=== PATIENT | female | born 1965 | race Caucasian/White ===

== ENCOUNTER 2020-03-09 15:39 | Emergency (ER) | payer OTHER ==
[~2020-03-09] VITALS: Ht 154.9 cm; Wt 83.9 kg
[2020-03-09 18:04] LABS: URINE BILIRUBIN NEGATIVE (Negative); URINE BLOOD NEGATIVE (Negative); URINE CLARITY CLEAR; URINE COLOR YELLOW; URINE GLUCOSE-RANDOM* NEGATIVE (Negative); URINE KETONES NEGATIVE (Negative); URINE LEUKOCYTES-REFLEX NEGATIVE (Negative); URINE NITRITE-REFLEX NEGATIVE (Negative); URINE PROTEIN (DIPSTICK) NEGATIVE (Negative); URINE UROBILINOGEN 0.2 E.U./dl (0.2-1.0)
[2020-03-09 18:06] LABS: HEMATOCRIT 44.1 % (37.0-47.0); HEMOGLOBIN 14.2 gm/dL (12.0-15.0); MCH 26.9 pg (26.0-34.0); MCHC 32.1 g/dL (28.0-37.0); MCV 83.6 fL (80.0-100.0); RBC 5.28 mil/uL (4.20-5.00); RDW 16.4 % (10.5-14.5); WBC 11.1 thou/uL (4.0-11.0)
[2020-03-09 18:13] LABS: AMP/METHAMP Negative (Negative); BARBITURATES Negative (Negative); BENZODIAZEPINES Negative (Negative); COCAINE Negative (Negative); METHADONE Negative (Negative); OPIATES Negative (Negative); PCP Negative (Negative)
[2020-03-09 18:17] LABS: CALCIUM 9.9 mg/dL (8.5-10.1); CREATININE 0.9 mg/dL (0.6-1.0); POTASSIUM 3.5 mmol/L (3.5-5.1); SALICYLATE 7.9 mg/dL (2.8-20.0)
[2020-03-10] MEDS ORDERED: SUBOXONE 8 MG-1 EAC3 SUBLING (01:00)
[2020-03-10] MEDS ORDERED: LISINOPRIL-HCT1 EACH PO (01:01)
[2020-03-10] MEDS ORDERED: METFORMIN HCL500 MG PO (01:02)
[2020-03-10] MEDS ORDERED: BASAGLAR K100 UNIT/1 SUBQ (01:03)
[2020-03-10] MEDS ORDERED: PROAIR HFA8.5 GM INH (01:04)
[2020-03-10] MEDS ORDERED: OMEPRAZOLE 20 M20 M1 PO (01:04)
[2020-03-10] MEDS ORDERED: HYDRALAZINE 5050 MG PO (01:05)
[2020-03-10] MEDS ORDERED: LISINOPRIL-HCT1 EAC2 PO (01:05)
[2020-03-10] MEDS ORDERED: NICODERM CQ1 EAC1 TRANSDERM (01:05)
[2020-03-10] MEDS ORDERED: SEROQUEL 100 M100 M1 PO (01:06)
[2020-03-10] MEDS ORDERED: DESYREL150 MG PO (01:06)
[2020-03-10] MEDS ORDERED: LEVOTHYROXINE125 MC1 PO (11:33)
[2020-03-11 15:56] VITALS: BP 107/79
== END 2020-03-11 16:00 ==
LOC: ER 15:39
PROVIDERS: Emergency Medicine
DX: R45.851 Suicidal ideations (principal); G89.4 Chronic pain syndrome; F32.9 Major depressive disorder, single episode, unspecified; F43.21 Adjustment disorder with depressed mood; I10 Essential (primary) hypertension; E03.9 Hypothyroidism, unspecified; J44.9 Chronic obstructive pulmonary disease, unspecified; E11.9 Type 2 diabetes mellitus without complications; Z79.899 Other long term (current) drug therapy; Z79.4 Long term (current) use of insulin; Z20.828 Contact with and (suspected) exposure to other viral communicable diseases